=== PATIENT | male | born 1990 | race Caucasian/White ===

== ENCOUNTER 2016-11-25 22:57 | Emergency (ER) | payer SELFPAY ==
[~2016-11-25] VITALS: Ht 182.8 cm; Wt 68.0 kg
[~2016-11-25 22:57] MED LIST: ATARAX25 MG PO; FLEXERIL10 MG PO; LIDEX0.05% T; MOTRIN800 MG PO; NAPROSYN500 MG PO; NKHM; PREDNICOT20 MG PO; TRAMADOL HCL50 MG PO
== END 2016-11-26 00:04 | disposition home or self-care (01) ==
LOC: ED 22:57
DX: M25.572 Pain in left ankle and joints of left foot (principal); X58.XXXA Exposure to other specified factors, initial encounter; Y93.89 Activity, other specified; Y92.69 Other specified industrial and construction area as the place of occurrence of the external cause; Y99.9 Unspecified external cause status

== ENCOUNTER 2022-12-20 12:46 | Emergency (ER) | payer SELFPAY ==
[~2022-12-20] VITALS: Wt 74.8 kg
== END 2022-12-20 14:34 | disposition home or self-care (01) ==
LOC: ED 12:46
DX: S63.501A Unspecified sprain of right wrist, initial encounter (principal); W01.0XXA Fall on same level from slipping, tripping and stumbling without subsequent striking against object, initial encounter; Y93.89 Activity, other specified; Y92.828 Other wilderness area as the place of occurrence of the external cause; Y99.8 Other external cause status

== ENCOUNTER 2023-08-04 07:22 | Emergency (ER) | payer SELFPAY ==
[~2023-08-04] VITALS: Ht 182.8 cm; Wt 72.6 kg
[2023-08-04] MEDS ORDERED: IBUPROFEN 800 MG TAB PO ONE (07:35)
[2023-08-04] MEDS ORDERED: ACETAMINOPHEN 325 MG TAB PO ONE (07:35)
[2023-08-04] MEDS ORDERED: Motrin,Rufen800 MG PO (08:49)
== END 2023-08-04 08:54 | disposition home or self-care (01) ==
LOC: ED 07:22
DX: S29.012A Strain of muscle and tendon of back wall of thorax, initial encounter (principal); X58.XXXA Exposure to other specified factors, initial encounter; Y93.89 Activity, other specified; Y92.89 Other specified places as the place of occurrence of the external cause; Y99.8 Other external cause status